=== PATIENT | male | born 1990 | race Caucasian/White ===

== ENCOUNTER 2018-03-14 13:28 | Observation (INO) | payer MEDICAID ==
--- NOTE | 2018-03-14 16:29 | Emergency Department Record ---
History of Present Illness - General Chief complaint: General Stated complaint: RT ARMPIT/BACK PAIN Time Seen by Provider: 03/14/18 16:22 Source: Patient Mode of Arrival: Ambulatory Limitations: No limitations - History of Present Illness Initial comments: 27 yo male presents with three to four days of right axillary pain and swelling. He states the area has continued to increase in size. The pain now spreads to the chest and back. He has pain with any movement of the arm. He has been having fevers as well. No history of the same. He has history of cerebral palsy. No current PCP. He uses crutches for his CP. This has been very difficult with the axillary infection. MD complaint: Abscess/boil -: Days(s) (4) Severity: Severe Quality: Aching Consistency: Constant Improves with: None Worsens with: Movement Context: None Associated symptoms: Athralgias Treatments Prior to Arrival: None - Related Data Allergies Allergy/AdvReac Type Severity Reaction Status Date / Time No Known Drug Allergies Allergy Verified 03/14/18 16:09 Travel Screening - Travel/Exposure Within Last 30 Days Have you traveled within the last 30 days?: No - Travel/Exposure Within Last Year Have you traveled outside the [place] in the last year?: No - Additonal Travel Details Have you been exposed to anyone with a communicable illness?: No - Travel Symptoms Symptom Screening: None Review of Systems Constitutional: Reports: Fever. Denies: Malaise Eyes: Denies: Eye discharge, Eye pain ENT: Denies: Congestion, Dental pain, Throat pain Respiratory: Denies: Cough, Dyspnea, Hemoptysis, Wheezes Cardiovascular: Denies: Chest pain, Palpitations, Syncope Endocrine: Denies: Fatigue Gastrointestinal: Denies: Abdominal pain, Diarrhea, Nausea, Vomiting Genitourinary: Denies: Dysuria, Frequency, Hematuria Musculoskeletal: Reports: Joint swelling, Myalgia. Denies: Arthralgia, Back pain, Neck pain Skin: Denies: Bruising, Change in color, Rash Neurological: Denies: Headache, Numbness, Weakness Psychiatric: Denies: Anxiety Hematological/Lymphatic: Denies: Blood Clots, Easy bleeding, Easy bruising Past Medical History - SOCIAL HISTORY Smoking Status: Never smoker Alcohol Use: None Drug Use: None - RESPIRATORY Hx Respiratory Disorders: No - CARDIOVASCULAR Hx Cardio Disorders: No - NEURO Hx Neuro Disorders: Yes Hx Headaches: Yes Comment:: Cerebral palsy - GI Hx GI Disorders: Yes Hx Reflux: Yes - Hx Genitourinary Disorders: No - ENDOCRINE Hx Endocrine Disorders: No - MUSCULOSKELETAL Hx Musculoskeletal Disorders: No - PSYCH Hx Psych Problems: No - HEMATOLOGY/ONCOLOGY Hx Hematology/Oncology Disorders: No Family Medical History Any Significant Family History?: Yes Family Hx Comment (NOT TO BE USED IN PLACE OF ITEMS BELOW): unknown-adopted Hx Alcohol Use: Mother *Alcohol Comment: cocaine addicted Physical Exam - General General Appearance: Alert, Oriented x3, Cooperative, No acute distress Limitations: No limitations - Head Head exam: Atraumatic, Normal inspection - Eye Eye exam: Normal appearance. negative: Conjunctival injection, Scleral icterus - ENT ENT exam: Normal exam, Mucous membranes moist Ear exam: Normal external inspection Nasal Exam: Normal inspection Mouth exam: Normal external inspection - Neck Neck exam: Normal inspection - Respiratory Respiratory exam: Normal lung sounds bilaterally. negative: Respiratory distress - Cardiovascular Cardiovascular Exam: Regular rate, Normal rhythm, Normal heart sounds - GI/Abdominal GI/Abdominal exam: Soft. negative: Tenderness - Extremities Extremities exam: negative: Normal inspection Image of Full Body: 1 - significant tenderness right axillary, limited examination due to pain and body habitus, erythema visible - Neurological Neurological exam: Alert, Oriented X3 - Psychiatric Psychiatric exam: Normal affect, Normal mood - Skin Skin exam: Erythema Course Vital Signs 03/14/18 03/14/18 16:09 16:12 Temperature 100.3 F H 100.3 F H Pulse Rate [ 101 H Pulse Ox Probe] Respiratory 20 Rate Blood Pressure 155/103 [Left Arm] Pulse Ox 99 - Reevaluation(s) Reevaluation #1: Given the significant limitations with examination due to body habitus and pain CT was ordered. 03/14/18 17:54 The labs were reviewed WBC is 13 The CRP is 1.68 BNP is normal 03/14/18 17:57 03/14/18 18:[address] demonstrates right axillary stranding, no discrete abscess but the organizing into about 2cm plegmon area. Medical Decision Making - Lab Data Result diagrams: 03/15/18 06:28 03/15/18 06:28 Disposition Disposition: Admit Clinical Impression: Abscess Cellulitis Qualifiers: Site of cellulitis: extremity Site of cellulitis of extremity: axilla Laterality: right Qualified Code(s): L03.111 - Cellulitis of right axilla Disposition: Still a Patient at [facility] Decision to Admit: Admit from ER Decision to Admit Date: 03/14/18 Decision to Admit Time: 19:00 Condition: (2) Stable Time of Disposition: 19:34 Quality - Quality Measures Quality Measures: N/A - Blood Pressure Screening Does Patient Have Any of the Following: No Blood Pressure Classification: Pre-Hypertensive BP Reading Systolic Measurement: 128 Diastolic Measurement: 79 Screening for High Blood Pressure: < Pre-Hypertensive BP, F/U Documented > [ G8950] Pre-Hypertensive Follow-up Interventions: Referral to alternative/primary care provider.
[2018-03-14] MEDS ORDERED: ACETAMINOPHEN 1,000 MG/100 ML BTL IVPB ONE (16:30)
[2018-03-14] MEDS ORDERED: MORPHINE SULFATE 10 MG/ML VIAL IVP ONE ×2 (16:30→19:18)
[2018-03-14] MEDS ORDERED: 0.9 % SODIUM CHLORIDE 1,000 ML BAG IV ONE (16:30)
[2018-03-14] MEDS ORDERED: KETOROLAC 30 MG/ML VIAL IVP ONE (16:30)
[2018-03-14 16:48] LABS: BASO % 0.2 % (0-6); EOS % 0.9 % (0-6); GRAN % 74.2 % (47-80); HEMOGLOBIN 16.9 gm/dl (14.0-18.0); LYMPH % 18.4 % (16-45); MEAN CELL VOLUME 85.3 fl (81-97); MEAN CORPUSCULAR HGB CONC 35.2 g/dl (32-36); MEAN PLATELET VOLUME 11.6 fl (7.4-10.4); MONO % 6.3 % (0-9); PLATELET COUNT 232 K/uL (130-400); RED BLOOD COUNT 5.63 M/uL (4.40-5.70); RED CELL DISTRIBUTION WIDTH 12.2 % (11.5-14.5)
[2018-03-14 17:02] LABS: BLOOD UREA NITROGEN 16 mg/dL (6-20); CREATININE 0.8 mg/dL (0.7-1.2); EST GLOMERULAR FILTRATION RATE > 60 mL/min
[2018-03-14 17:05] LABS: GLUCOSE,RANDOM 83 mg/dL (74-109)
[2018-03-14 17:08] LABS: C-REACTIVE PROTEIN 1.68 mg/dL (<0.5)
[2018-03-14] MEDS: CLINDAMYCIN 600MG/50ML PREMIX 600 MG/50 ML BAG IVPB SCH (18:04)
[2018-03-14] MEDS ORDERED: CLINDAMYCIN 600MG/50ML PREMIX 600 MG/50 ML BAG IVPB SCH (19:39)
[2018-03-14] MEDS: 0.9 % SODIUM CHLORIDE 1000ML 1,000 ML IV PRN (21:00)
[2018-03-14] MEDS: ACETAMINOPHEN 500 MG TABLET PO PRN (23:03)
[2018-03-14] MEDS: MORPHINE SULFATE 10 MG/ML VIAL IVP PRN (23:04)
[2018-03-15] MEDS: CLINDAMYCIN 600MG/50ML PREMIX 600 MG/50 ML BAG IVPB SCH ×3 (02:42→17:02)
[2018-03-15] MEDS: KETOROLAC 30 MG/ML VIAL IVP PRN ×2 (03:04→11:26)
[2018-03-15] MEDS: MORPHINE SULFATE 10 MG/ML VIAL IVP PRN ×4 (03:48→21:11)
[2018-03-15] MEDS: 0.9 % SODIUM CHLORIDE 1000ML 1,000 ML IV PRN (06:21)
[2018-03-15 06:33] LABS: BASO % 0.3 % (0-6); GRAN % 63.3 % (47-80); HEMATOCRIT 45.3 % (42.0-52.0); HEMOGLOBIN 15.8 gm/dl (14.0-18.0); LYMPH % 24.6 % (16-45); MEAN CELL VOLUME 86.5 fl (81-97); MEAN CORPUSCULAR HEMOGLOBIN 30.2 pg (27-33); MEAN CORPUSCULAR HGB CONC 34.9 g/dl (32-36); MEAN PLATELET VOLUME 10.9 fl (7.4-10.4); MONO % 9.8 % (0-9); PLATELET COUNT 208 K/uL (130-400); RED BLOOD COUNT 5.24 M/uL (4.40-5.70); RED CELL DISTRIBUTION WIDTH 12.2 % (11.5-14.5); WHITE BLOOD COUNT W/O DIFF 9.5 K/uL (4.2-12.2)
[2018-03-15 07:07] LABS: BLOOD UREA NITROGEN 20 mg/dL (6-20); EST GLOMERULAR FILTRATION RATE > 60 mL/min; GLUCOSE,RANDOM 86 mg/dL (74-109)
--- NOTE | 2018-03-15 07:42 | CT SCAN REPORT ---
EXAM: CT SCAN OF THE CHEST WITH CONTRAST HISTORY: PATIENT HAS REDNESS AND SORENESS WITHIN THE RIGHT AXILLARY REGION. EVALUATE FOR ABSCESS. TECHNIQUE: Serial axial CT scan of the chest was performed at 3.75 mm intervals from the thoracic inlet to the dome of the diaphragm following the intravenous administration of 100 ml of Omnipaque 300. Comparison: Chest x-ray dated 08/07/16 is provided. FINDINGS: The thoracic inlet is unremarkable. The lung windows demonstrate no CT evidence of a focal infiltrate, pleural effusion, or pneumothorax. Nonspecific 3.5 mm nodule is noted within the lateral segment of the right middle lobe. Follow-up CT scan of the chest can be obtained in six months to document stability of finding. The visualized heart size and contour is within normal limits. The thoracic aorta is unremarkable. There is no CT evidence of mediastinal, hilar, or axillary lymphadenopathy. The chest wall is unremarkable. There is subcutaneous fat stranding identified within the right axillary region. There is mild asymmetric hypertrophy of the right axillary lymph nodes which is likely reactive. There is a 2.2 cm x 1.8 cm focus of isodense soft tissue is noted within the subcutaneous fat of the right axilla. I suspect this finding likely represents a small phlegmon without liquefaction. The axial images through the upper abdomen demonstrate the visualized liver, spleen, bilateral adrenal glands, pancreas, gallbladder, and the visualized kidneys to be unremarkable. Bone windows demonstrate the visualized osseous structures to be unremarkable. IMPRESSION: 1. NO CT EVIDENCE OF AN ACUTE INTRATHORACIC PROCESS. 2. SUBCUTANEOUS FAT STRANDING IS IDENTIFIED WITH SMALL FOCUS OF ISODENSE TISSUE WITHIN THE RIGHT AXILLARY REGION. I SUSPECT THIS FINDING LIKELY REPRESENTS A SMALL PHLEGMON WHICH HAS NOT LIQUEFIED TO BECOME AN ABSCESS AT THIS LOCATION. JOB NUMBER: [id number] [facility]
[2018-03-15] MEDS: ACETAMINOPHEN 500 MG TABLET PO PRN (10:02)
--- NOTE | 2018-03-15 11:27 | History & Physical ---
History of Present Illness - Date of Service Date of Service for History & Physical: 03/15/18 - History of Present Illness Admitting Diagnosis: Axillary Abscess, cellulitis History of Present Illness: 27 year old male presented to ED for evaluation of worsening right axillary pain and swelling. Patient has noted increased redness and an enlarging abscess of the area over the past 3-4 days. Patient also reports intermittent fevers at home, with noted chills and sweating. Patient's only significant medical history is of cerebral palsy, for which he uses crutches for ambulation. ED Course: VS: Temp 100.3F, HR 101, RR 20, BP 155/103, Pulse ox 99% Labs: WBC 13, CRP 1.68, BMP WNL CT Chest: right axillary stranding, no discrete abscess but organizing into about a 2cm phlegmon Consult gen surg (Ivan) No PCP 03/15/2018: Patient A&O x 4, sitting on edge of bed. No distress. Patient has remained afebrile since admission, WBC decreased to 9.5. Dr. Love was consulted, has seen patient this morning and planning to take patient to OR this afternoon for I&D of right axilla. Patient NPO. Will continue IV fluids, clindamycin, and pain control with morphine and toradol. Patient agreeable to plan. Travel Screening - Travel/Exposure Within Last 30 Days Have you traveled within the last 30 days?: No - Travel/Exposure Within Last Year Have you traveled outside the [place] in the last year?: No - Additonal Travel Details Have you been exposed to anyone with a communicable illness?: No - Travel Symptoms Symptom Screening: Fever (Subjective) Review of Systems Constitutional: Reports: Fever. Denies: Malaise Eyes: Denies: Eye discharge, Eye pain ENT: Denies: Congestion, Dental pain, Throat pain Respiratory: Denies: Cough, Dyspnea, Hemoptysis, Wheezes Cardiovascular: Denies: Chest pain, Palpitations, Syncope Endocrine: Denies: Fatigue Gastrointestinal: Denies: Abdominal pain, Diarrhea, Nausea, Vomiting Genitourinary: Denies: Dysuria, Frequency, Hematuria Musculoskeletal: Reports: Myalgia, Other (right axilla pain/swelling). Denies: Arthralgia, Back pain, Neck pain Skin: Denies: Bruising, Change in color, Rash Neurological: Denies: Headache, Numbness, Weakness Psychiatric: Denies: Anxiety Hematological/Lymphatic: Denies: Blood Clots, Easy bleeding, Easy bruising Past Medical History - SOCIAL HISTORY Smoking Status: Never smoker Alcohol Use: Occasional - RESPIRATORY Hx Respiratory Disorders: Yes Hx Asthma: Yes (chilhood only) - CARDIOVASCULAR Hx Cardio Disorders: No - NEURO Hx Neuro Disorders: Yes Hx Headaches: Yes Hx of Migraines: Yes (1-2 x month) Hx of Neuromuscular Disease: No Comment:: Cerebral palsy - GI Hx GI Disorders: Yes Hx Reflux: Yes ("killer indigestion"- otc med) - Hx Genitourinary Disorders: No - ENDOCRINE Hx Endocrine Disorders: No - MUSCULOSKELETAL Hx Musculoskeletal Disorders: No Comment:: rt total hip age 12 - PSYCH Hx Psych Problems: No - HEMATOLOGY/ONCOLOGY Hx Hematology/Oncology Disorders: Yes Hx Blood Transfusions: Yes Family Medical History Any Significant Family History?: Yes Family Hx Comment (NOT TO BE USED IN PLACE OF ITEMS BELOW): unknown-adopted Hx Alcohol Use: Mother *Alcohol Comment: cocaine addicted H&P Meds/Allergies - Allergies Allergies: Allergies Allergy/AdvReac Type Severity Reaction Status Date / Time No Known Drug Allergies Allergy Verified 03/14/18 16:09 - Active Medications Active Medications: Current Medications Acetaminophen (Tylenol 500mg Tab) 1,000 mg PO Q6H PRN PRN Reason: PAIN - MILD(1-4)/FEVER Last Admin: 03/15/18 10:02 Dose: 1,000 mg Famotidine (Pepcid) 20 mg PO PREOP ONE Stop: 03/15/18 13:31 Clindamycin Phosphate (Cleocin 600 Go-Q4v-Hruppv) 600 mg in 50 mls @ 100 mls/ hr IVPB Q8H BAKARI Last Infusion: 03/15/18 10:29 Dose: Infused Sodium Chloride () 1,000 mls @ 125 mls/hr IV .Q8H PRN PRN Reason: LARGE VOLUME IV Last Admin: 03/15/18 06:21 Dose: 125 mls/hr Acetaminophen (Ofirmev) 1,000 mg in 100 mls @ 400 mls/hr IV PREOP ONE Stop: 03/15/18 13:44 Ketorolac Tromethamine (Toradol) 15 mg IVP Q8H PRN PRN Reason: PAIN - MILD (1-4) Last Admin: 03/15/18 03:04 Dose: 15 mg Meclizine HCl (Antivert) 25 mg PO PREOP ONE Stop: 03/15/18 13:31 Metoclopramide HCl (Reglan) 10 mg PO PREOP ONE Stop: 03/15/18 13:31 Morphine Sulfate (Morphine Sulfate) 5 mg IVP Q4H PRN PRN Reason: PAIN - MOD TO SEVERE (5-10) Last Admin: 03/15/18 08:18 Dose: 5 mg Physical Exam - Vital Signs Vital Signs: Vital Signs - Last 24 Hrs Temp Pulse Resp BP Pulse Ox 03/15/18 08:34 80 16 03/15/18 03:00 97.6 F 78 16 121/88 98 03/14/18 19:39 98.4 F 69 18 129/81 97 03/14/18 18:05 95 H 17 135/69 03/14/18 16:12 100.3 F H 03/14/18 16:09 100.3 F H 101 H 20 155/103 99 - General General Appearance: Alert, Oriented x3, Cooperative, No acute distress Limitations: No limitations - Head Head exam: Atraumatic, Normal inspection - Eye Eye exam: Normal appearance. negative: Conjunctival injection, Scleral icterus - ENT ENT exam: Normal exam, Mucous membranes moist Ear exam: Normal external inspection Nasal Exam: Normal inspection Mouth exam: Normal external inspection - Neck Neck exam: Normal inspection - Respiratory Respiratory exam: Normal lung sounds bilaterally. negative: Respiratory distress - Cardiovascular Cardiovascular Exam: Regular rate, Normal rhythm, Normal heart sounds - GI/Abdominal GI/Abdominal exam: Soft. negative: Tenderness - Rectal Rectal exam: Deferred - exam: Deferred - Extremities Extremities exam: Other (erythema and swelling noted in right axilla, tender to palpation). negative: Normal inspection - Neurological Neurological exam: Alert, Oriented X3 - Psychiatric Psychiatric exam: Normal affect, Normal mood - Skin Skin exam: Erythema (right axilla) Results - Labs Result Diagrams: 03/15/18 06:28 03/15/18 06:28 Labs Last 24 Hours: Laboratory Results - last 24 hr 03/14/18 03/14/18 03/15/18 16:25 16:25 06:28 WBC 13.0 H 9.5 RBC 5.63 5.24 Hgb 16.9 15.8 Hct 48.0 45.3 MCV 85.3 86.5 MCH 30.0 30.2 MCHC 35.2 34.9 RDW 12.2 12.2 Plt Count 232 208 MPV 11.6 H 10.9 H Gran % 74.2 63.3 Lymphocytes % 18.4 24.6 Monocytes % 6.3 9.8 H Eosinophils % 0.9 2.0 Basophils % 0.2 0.3 Sodium 139 Potassium 3.9 Chloride 100 Carbon Dioxide 24.0 Anion Gap 15.0 BUN 16 Creatinine 0.8 Estimated GFR > 60 Random Glucose 83 Calcium 8.7 C-Reactive Protein 1.68 H 03/15/18 06:28 WBC RBC Hgb Hct MCV MCH MCHC RDW Plt Count MPV Gran % Lymphocytes % Monocytes % Eosinophils % Basophils % Sodium 142 Potassium 4.0 Chloride 106 Carbon Dioxide 27.0 Anion Gap 9.0 BUN 20 Creatinine 1.0 Estimated GFR > 60 Random Glucose 86 Calcium 8.1 L C-Reactive Protein VTE H&P Assessment - Risk for VTE Risk for VTE: Yes Risk Level: Moderate Risk Assessment Date: 03/15/18 Risk Assessment Time: 11:28 VTE Orders Placed or Will Be Placed: Yes Plan - Detailed Diagnosis and Plan (1) Abscess Current Visit: Yes Status: Acute Base Code: L02.91 - CUTANEOUS ABSCESS, UNSPECIFIED Comment: 03/15/18: Right axilla abscess growing in size over last 4 days. Patient had low-grade temp on admission, WBC 13. CT chest indicated phlegmon of right axillary. -Generaly surgery consult: will take to OR for I&D later today -IV clindamycin -Toradol and Morphine for pain -Repeat CBC tomorrow (2) DVT prophylaxis Current Visit: Yes Status: Acute Base Code: [id number] - Comment: 03/15/18: Increased risk due to decreased mobility, infection, and OR -Lovenox 40mg SQ (3) Full code status Current Visit: Yes Status: Acute Base Code: Z78.9 - OTHER SPECIFIED HEALTH STATUS Comment: 03/15/18: Full code status
[2018-03-15] MEDS: METOCLOPRAMIDE 10 MG TABLET PO ONE ×2 (12:13→12:49)
[2018-03-15] MEDS: MECLIZINE 25 MG TABLET PO ONE ×2 (12:13→12:48)
[2018-03-15] MEDS: FAMOTIDINE 20MG TABLET PO ONE ×2 (12:13→12:49)
[2018-03-15] MEDS ORDERED: ACETAMINOPHEN 1,000 MG/100 ML BTL IV ONE (13:30)
[2018-03-15] MEDS ORDERED: HYDROCODONE/APAP 5/325MG TABLET PO PRN (13:53)
[2018-03-15] MEDS ORDERED: BUPIVACAINE 0.25% W/EPI MPF 30ML VIAL IVP ONE (15:07)
[2018-03-15] MEDS: HYDROCODONE/APAP 5/325MG TABLET PO PRN (23:20)
[2018-03-16] MEDS: CLINDAMYCIN 600MG/50ML PREMIX 600 MG/50 ML BAG IVPB SCH ×2 (01:26→09:49)
[2018-03-16] MEDS: HYDROCODONE/APAP 5/325MG TABLET PO PRN (05:33)
[2018-03-16 06:33] LABS: BASO % 0.2 % (0-6); EOS % 1.4 % (0-6); GRAN % 62.2 % (47-80); HEMOGLOBIN 15.1 gm/dl (14.0-18.0); MEAN CELL VOLUME 86.9 fl (81-97); MEAN CORPUSCULAR HEMOGLOBIN 30.5 pg (27-33); MEAN CORPUSCULAR HGB CONC 35.1 g/dl (32-36); MEAN PLATELET VOLUME 11.2 fl (7.4-10.4); MONO % 10.2 % (0-9); PLATELET COUNT 228 K/uL (130-400); RED BLOOD COUNT 4.95 M/uL (4.40-5.70); RED CELL DISTRIBUTION WIDTH 12.2 % (11.5-14.5); WHITE BLOOD COUNT W/O DIFF 10.1 K/uL (4.2-12.2)
[2018-03-16 06:47] LABS: BLOOD UREA NITROGEN 20 mg/dL (6-20); CREATININE 0.9 mg/dL (0.7-1.2); EST GLOMERULAR FILTRATION RATE > 60 mL/min; GLUCOSE,RANDOM 94 mg/dL (74-109)
--- NOTE | 2018-03-16 08:20 | Operative Note ---
DATE OF SURGERY: 03/14/2018 Surgeon: Markell Love DO PREOPERATIVE DIAGNOSIS: Right axillary abscess. OPERATION: I&D of right axillary abscess. Indication: The patient is a 27-year-old male who presented to the hospital last night. It appeared that he had a developing abscess. On exam today after placing him on warm compresses overnight, this was certainly a mature abscess with fluctuance and surrounding cellulitis. We did discuss I&D. risks, benefits, and alternatives were discussed. Risks include bleeding, infection, acute or chronic pain, recurrence. He understood this fully. Therefore, consent was signed and questions answered. PROCEDURE: The patient was taken to the operating room and placed in a supine position. Local IV sedation was given per the department of anesthesia. The patient's right axillary region was shaved of hair and prepped and draped in the usual sterile fashion. This area was then anesthetized with a total of 8 mL of 0.25% Sensorcaine with epinephrine. The area over the fluctuance was then incised with a #15 scalpel blade. A cruciate incision was made. This did drain copious amounts of purulent material. Aerobic and anaerobic cultures were taken. This was then irrigated thoroughly. This was packed with 1/2-inch iodoform gauze. Sterile bandages were applied. He was taken to the recovery room in stable condition. CC: MD MONTSE Harrison
[2018-03-16] MEDS: KETOROLAC 30 MG/ML VIAL IVP PRN (09:45)
[2018-03-16] MEDS ORDERED: ENOXAPARIN 40 MG/0.4 ML SYR SQ SCH (10:00)
--- NOTE | 2018-03-16 10:01 | Discharge Summary ---
Providers Discharge Summary Date: 03/16/18 Date of admission: 03/14/18 19:32 Attending physician: VANESA GARCIAS Consults: Consult Orders 03/14/18 19:39 Consult NOW Consulting Provider: Markell Love Physician Instructions: Reason For Exam: axillary cellulitis vs phlegmon Physical Exam - Vital Signs Vital Signs: Vital Signs - Last 24 Hrs Temp Pulse Resp BP Pulse Ox 03/16/18 07:47 96 H 18 03/15/18 21:00 98.3 F 96 H 18 128/79 100 03/15/18 20:28 84 16 03/15/18 13:40 97.3 F L 84 16 114/82 96 03/15/18 11:00 96.8 F L 88 18 123/79 96 - General General Appearance: Alert, Oriented x3, Cooperative, No acute distress Limitations: No limitations - Head Head exam: Atraumatic, Normal inspection - Eye Eye exam: Normal appearance. negative: Conjunctival injection, Scleral icterus - ENT ENT exam: Normal exam, Mucous membranes moist Ear exam: Normal external inspection Nasal Exam: Normal inspection Mouth exam: Normal external inspection - Neck Neck exam: Normal inspection - Respiratory Respiratory exam: Normal lung sounds bilaterally. negative: Respiratory distress - Cardiovascular Cardiovascular Exam: Regular rate, Normal rhythm, Normal heart sounds - GI/Abdominal GI/Abdominal exam: Soft. negative: Tenderness - Rectal Rectal exam: Deferred - exam: Deferred - Extremities Extremities exam: negative: Normal inspection - Neurological Neurological exam: Alert, Oriented X3 - Psychiatric Psychiatric exam: Normal affect, Normal mood - Skin Skin exam: Erythema Hospitalization - Hospitalization Admission Diagnosis: Axillary Abscess, cellulitis - Hospitalization Course Hospital Course: 27 year old male presented to ED for evaluation of worsening right axillary pain and swelling. Patient has noted increased redness and an enlarging abscess of the area over the past 3-4 days. Patient also reports intermittent fevers at home, with noted chills and sweating. Patient's only significant medical history is of cerebral palsy, for which he uses crutches for ambulation. ED Course: VS: Temp 100.3F, HR 101, RR 20, BP 155/103, Pulse ox 99% Labs: WBC 13, CRP 1.68, BMP WNL CT Chest: right axillary stranding, no discrete abscess but organizing into about a 2cm phlegmon Consult gen surg (Ivan) No PCP 03/15/2018: Patient A&O x 4, sitting on edge of bed. No distress. Patient has remained afebrile since admission, WBC decreased to 9.5. Dr. Love was consulted, has seen patient this morning and planning to take patient to OR this afternoon for I&D of right axilla. Patient NPO. Will continue IV fluids, clindamycin, and pain control with morphine and toradol. Patient agreeable to plan. 03/16/18: The patient complains of pain of the right axilla. Repeat labs: WBC 10.1, BMP WNL Vitals: 96% RA, Temp: 98.7, BP 96/55, HR 90, RR 18 Procedures: Imaging and X-Rays 03/14/18 16:34 CHEST W CONTRAST [CT] Stat Abnormal Labs: Abnormal Lab Results 03/14/18 03/14/18 03/15/18 Range/Units 16:25 16:25 06:28 WBC 13.0 H (4.2-12.2) K/uL MPV 11.6 H 10.9 H (7.4-10.4) fl Monocytes % 9.8 H (0-9) % Calcium (8.6-10.0) mg/dL C-Reactive Protein 1.68 H (<0.5) mg/dL 03/15/18 03/16/18 03/16/18 Range/Units 06:28 06:24 06:24 WBC (4.2-12.2) K/uL MPV 11.2 H (7.4-10.4) fl Monocytes % 10.2 H (0-9) % Calcium 8.1 L 8.4 L (8.6-10.0) mg/dL C-Reactive Protein (<0.5) mg/dL Condition at Discharge: (2) Stable Discharge Medications - Discharge Medications Prescriptions: Hydrocodone/APAP 5/325Mg [Fedora 5Mg/325Mg] 1 each PO Q6H PRN 5 Days #15 tab PRN Reason: Pain - Mod To Severe (5-10) Home Medications: Ambulatory Orders Hydrocodone/APAP 5/325Mg [Fedora 5Mg/325Mg] 1 each PO Q6H PRN 5 Days #15 tab 06/24 [Last Taken Unknown] Discharge Plan - Discharge Instructions Diet at Discharge: Regular Diet Wound Primary Dressing Type: Non-Adherent Gauze Pad Additional Instructions: Keep dressing clean and dry over the next 7 days. Antibiotics have been ordered for you by Dr. Love. Please take Keflex as prescribed. Fedora 5mg/325mg three times daily, as needed. Establish care/Post-discharge follow up at [facility] within the week. Quality Measures - Quality Measures Quality Measures: Documentation of Current Medications in Medical Record, Screening for High Blood Pressure and F/U Documented - Current Medications Quality Measure: Measure #130: Documentation of Current Medications Documentation of Current Medications: <Current Medications Documented/Reviewed> [G8427] - Blood Pressure Screening Quality Measure: Screening for High Blood Pressure and Follow-Up Documented Does Patient Have Any of the Following: No Blood Pressure Classification: Pre-Hypertensive BP Reading Systolic Measurement: 128 Diastolic Measurement: 79 Screening for High Blood Pressure: < Pre-Hypertensive BP, F/U Documented > [ G8950] Pre-Hypertensive Follow-up Interventions: Follow-up with rescreen every year. - Elder Abuse Suspicion Index EASI Reference Information: Renee RESENDEZ, Paulino C, Kaitlin D, Chris Suh.Development and validation of a tool to assist physicians identification of elder abuse: The Elder Abuse Suspicion Index (EASI ). Journal of Elder Abuse and Neglect, 2008; 20 (3): 276-300.
[2018-03-16] MEDS ORDERED: MIDAZOLAM HCL 2MG/2ML VIAL IV ONE (11:44)
[2018-03-16] MEDS ORDERED: PROPOFOL 10 MG/ML VIAL IV ONE (11:44)
[2018-03-16] MEDS ORDERED: LIDOCAINE 1% MDV (10MG/ML) 20ML VIAL SQ ONE (11:44)
[2018-03-16] MEDS ORDERED: FENTANYL PF 100MCG/2ML VIAL IV ONE (11:44)
== END 2018-03-16 11:45 | disposition home or self-care (01) ==
LOC: ER 13:28 → MEDSURG 19:32 → INTOOBSV 19:32 → OBSVTOIN 19:32
PROVIDERS: ADMIT Internal Medicine; ATTEND Internal Medicine
DX: L03.111 Cellulitis of right axilla (principal); G80.9 Cerebral palsy, unspecified; K21.9 Gastro-esophageal reflux disease without esophagitis
CPT/HCPCS: 10060; 00400; 99285 ×2; 96376; 96365; 96366; 96375; 85025 ×3; 86140; 87070; 80048 ×3; 71260; G0378 ×3; Q9967; J1885 ×3; J3010; J2270 ×2; J1650; J7030

== ENCOUNTER 2018-03-21 12:02 | Emergency (ER) | payer MEDICAID ==
--- NOTE | 2018-03-21 12:26 | Emergency Department Record ---
History of Present Illness - General Chief complaint: Extremity Problem Stated complaint: BOTH FEET SWOLLEN/POST OP Time Seen by Provider: 03/21/18 12:17 Source: Patient Mode of Arrival: Ambulatory Limitations: No limitations - History of Present Illness Initial comments: The patient is here due to a 2 day hx of foot and lower leg swelling and pain. The patient has a hx of Cerebral Palsey and did just have surgery 6 days ago here due to a R axilla abscess. He was doing well until 2 days ago when he developed the leg swelling. He denies any Cp or SOB or fevers. The patient does have an appointment with Dr. Love for tomorrow. MD Complaint: Extremity swelling Onset/Timin -: Days(s) Location: Left, Right, Lower Leg Radiation: Proximal Severity scale (1-10): 5 Quality: Aching - Related Data Previous Rx's Medication Instructions Recorded Cephalexin [Keflex] 500 mg PO TID #21 cap 03/16/18 Hydrocodone/APAP 5/325Mg [[place] 1 each PO Q6H PRN 5 Days #15 tab 03/16/18 5Mg/325Mg] Hydrochlorothiazide [Hctz] 25 mg PO DAILY #5 tablet 03/21/18 Allergies Allergy/AdvReac Type Severity Reaction Status Date / Time No Known Drug Allergies Allergy Verified 03/21/18 12:15 Travel Screening - Travel/Exposure Within Last 30 Days Have you traveled within the last 30 days?: No - Travel/Exposure Within Last Year Have you traveled outside the [place] in the last year?: No - Additonal Travel Details Have you been exposed to anyone with a communicable illness?: No Review of Systems Constitutional: Denies: Chills, Fever Eyes: Denies: Eye discharge ENT: Denies: Congestion Respiratory: Denies: Cough, Dyspnea Past Medical History - SOCIAL HISTORY Smoking Status: Never smoker Alcohol Use: None Drug Use: None - RESPIRATORY Hx Respiratory Disorders: No Hx Asthma: Yes (chilhood only) - CARDIOVASCULAR Hx Cardio Disorders: No - NEURO Hx Neuro Disorders: Yes Hx Headaches: Yes Comment:: Cerebral palsy - GI Hx GI Disorders: Yes Hx Reflux: Yes - Hx Genitourinary Disorders: No - ENDOCRINE Hx Endocrine Disorders: No - MUSCULOSKELETAL Hx Musculoskeletal Disorders: No Comment:: rt total hip age 12 - PSYCH Hx Psych Problems: No - HEMATOLOGY/ONCOLOGY Hx Hematology/Oncology Disorders: No Hx Blood Transfusions: Yes Family Medical History Any Significant Family History?: Yes Family Hx Comment (NOT TO BE USED IN PLACE OF ITEMS BELOW): unknown-adopted Hx Alcohol Use: Mother *Alcohol Comment: cocaine addicted Physical Exam - General General Appearance: Alert, Oriented x3, Cooperative, No acute distress - Head Head exam: Atraumatic, Normocephalic, Normal inspection - Eye Eye exam: Normal appearance, PERRL - Neck Neck exam: Normal inspection, Full ROM. negative: Tenderness - Respiratory Respiratory exam: Normal lung sounds bilaterally. negative: Respiratory distress - Cardiovascular Cardiovascular Exam: Regular rate, Normal rhythm, Normal heart sounds - GI/Abdominal GI/Abdominal exam: Soft, Normal bowel sounds. negative: Tenderness - Extremities Extremities exam: Full ROM, Tenderness (mainly the L foot but there are no signs of trauma.). negative: Normal inspection (There is very mild foot edema bilaterally with no erythema, warmth or infection.), Calf tenderness (There is no calf or thigh or posterior knee tenderness. There are no signs of DVT.), Joint swelling, Pedal edema - Neurological Neurological exam: Abnormal gait (chronic due to CP.), Alert, Motor sensory deficit (chronic due to CP.), Oriented X3. negative: Normal gait Course Vital Signs 03/21/18 12:05 Temperature 98.6 F Pulse Rate 92 H Respiratory 17 Rate Blood Pressure 135/76 Pulse Ox 97 - Reevaluation(s) Reevaluation #1: I explained to the patient that the work up is all neg. He does have mildly elevated liver enzymes which we discussed and we will have the patient recheck them with his PCP. We will place the patient on a low dose water pill for 3 days and have him see his PCP later this week. 03/21/18 13:39 03/21/18 13:42 Medical Decision Making - Data Complexity MDM Data: Labs Ordered and/or Reviewed, X-Ray Ordered and/or Reviewed - Lab Data Result diagrams: 03/21/18 12:52 03/21/18 12:52 - Radiology Data Radiology results: Report reviewed (CXR: Neg per Rad.) Disposition Disposition: Discharge Clinical Impression: Leg edema Disposition: Home, Self-Care Condition: (2) Stable Instructions: Leg Edema (ED) Additional Instructions: Please continue your regular medicines and please take the HCTZ as directed. Please see your family doctor later this week for recheck. Please keep your appointment with Dr. Love for tomorrow and return to the ER for any worsening symptoms. Prescriptions: Hydrochlorothiazide [Hctz] 25 mg PO DAILY #5 tablet Forms: Patient Portal Access Time of Disposition: 13:45 Quality - Quality Measures Quality Measures: N/A - Blood Pressure Screening View Details: Yes Does Patient Have Any of the Following: No Blood Pressure Classification: Pre-Hypertensive BP Reading Systolic Measurement: 120 Diastolic Measurement: 86 Screening for High Blood Pressure: < Pre-Hypertensive BP, F/U Documented > [ [id number]] Pre-Hypertensive Follow-up Interventions: Referral to alternative/primary care provider.
[2018-03-21 13:00] LABS: BASO % 0.5 % (0-6); GRAN % 48.1 % (47-80); HEMOGLOBIN 16.3 gm/dl (14.0-18.0); LYMPH % 37.1 % (16-45); MEAN CELL VOLUME 84.9 fl (81-97); MEAN CORPUSCULAR HEMOGLOBIN 30.1 pg (27-33); MEAN CORPUSCULAR HGB CONC 35.4 g/dl (32-36); MEAN PLATELET VOLUME 10.3 fl (7.4-10.4); MONO % 10.3 % (0-9); PLATELET COUNT 273 K/uL (130-400); RED BLOOD COUNT 5.42 M/uL (4.40-5.70); RED CELL DISTRIBUTION WIDTH 12.1 % (11.5-14.5); WHITE BLOOD COUNT W/O DIFF 5.7 K/uL (4.2-12.2)
[2018-03-21 13:09] LABS: BLOOD UREA NITROGEN 21 mg/dL (6-20); CREATININE 0.8 mg/dL (0.7-1.2); EST GLOMERULAR FILTRATION RATE > 60 mL/min
[2018-03-21 13:10] LABS: TOTAL PROTEIN 7.4 g/dL (6.6-8.7)
[2018-03-21 13:12] LABS: GLUCOSE,RANDOM 113 mg/dL (74-109)
[2018-03-21 13:14] LABS: ALT/SGPT 90 U/L (<41)
[2018-03-21 13:15] LABS: ALB/GLOB RATIO 1.5 (1.1-1.8); ALBUMIN 4.4 g/dL (4.0-5.0); ALKALINE PHOSPHATASE 68 U/L (40-129); AST/SGOT 67 U/L (10.0-50.0)
[2018-03-21 13:31] LABS: URINE APPEARANCE CLEAR; URINE BILIRUBIN NEGATIVE (NEGATIVE); URINE BLOOD NEGATIVE (NEGATIVE); URINE COLOR YELLOW; URINE GLUCOSE (UA) NEGATIVE (NEGATIVE); URINE KETONE NEGATIVE (NEGATIVE); URINE LEUKOCYTE ESTERASE NEGATIVE (NEGATIVE); URINE NITRITE NEGATIVE (NEGATIVE); URINE PROTEIN NEGATIVE (NEGATIVE)
--- NOTE | 2018-03-22 07:48 | RADIOLOGY REPORT ---
EXAM: CHEST, TWO VIEWS HISTORY: CHEST PAIN. TECHNIQUE: Frontal and lateral views of the chest were obtained. Comparison: Prior chest 08/07/16. FINDINGS: The heart size is normal. Mild elevation of the right hemidiaphragm. The lungs are clear. No pneumothorax. IMPRESSION: NO ACUTE CARDIOPULMONARY PROCESS. JOB NUMBER: [id number] MTDD
== END 2018-03-21 13:58 | disposition home or self-care (01) ==
LOC: ER 12:02
DX: R60.0 Localized edema (principal); R94.5 Abnormal results of liver function studies; R07.9 Chest pain, unspecified; R06.02 Shortness of breath; G80.9 Cerebral palsy, unspecified; Z98.890 Other specified postprocedural states
CPT/HCPCS: 71046; 80053; 81003; 85025; 99283; 99284

== ENCOUNTER 2018-11-04 13:17 | Day surgery (SDC) | payer MEDICAID ==
[2018-11-04] MEDS ORDERED: PROPOFOL 10 MG/ML VIAL IV ONE (13:18)
[2018-11-04] MEDS ORDERED: LIDOCAINE 2% MDV (20MG/ML) 20ML VIAL IV ONE (13:18)
--- NOTE | 2018-11-05 10:00 | Operative Note ---
DATE OF SURGERY: 11/04/2018 OPERATION: COLONOSCOPY. PREOPERATIVE DIAGNOSIS: Hematochezia. POSTOPERATIVE DIAGNOSIS: Normal exam. PREPARATION QUALITY: Excellent. ESTIMATED BLOOD LOSS: None. SPECIMENS: None. COMPLICATIONS: None. PROCEDURE: After informed consent was obtained from the patient, the patient was placed in the left lateral decubitus position in the endoscopy suite, sedated and monitored by the department of anesthesia. Digital rectal examination was unremarkable. A well-lubricated [id number] colonoscope was inserted into the rectum and advanced to the cecum. The cecum, cecal bulb, ileocecal valve, appendiceal orifice, terminal ileum, ascending colon, transverse colon, descending colon, sigmoid colon, and rectum were free of inflammatory changes, mass lesions, or polyps. Forward and J-turn views of the rectum and anorectum were unremarkable. The endoscope was straightened, the rectal ampulla deflated, and the endoscope was removed. RECOMMENDATIONS: I would suggest the patient follow a high-fiber diet. At this point, I am suspicious he may have suffered from an anorectal bleeding source, perhaps even intermittent hemorrhoidal inflammation. Supplemental fiber may be helpful as well and as such, consider Benefiber or Citrucel addition to his daily regimen. As always, thank you for allowing me to participate in the healthcare of your patients. CC: GHULAM Neal
== END 2018-11-04 14:29 | disposition home or self-care (01) ==
LOC: HOP 13:17
PROVIDERS: ATTEND Internal Medicine Gastroenterology
DX: K92.1 Melena (principal); I10 Essential (primary) hypertension